=== PATIENT | female | born 2000 | race African-American/Black ===

== ENCOUNTER 2022-06-10 13:55 | Emergency (ER) | payer OTHER, SELFPAY ==
[2022-06-10 14:15] VITALS: BP 143/78; PULSE 76; RESP 18; TEMP 36.7; O2SAT 100
[2022-06-10 17:05] LABS: Beta HCG Quantitative 61.48 mIU/ML
--- NOTE | 2022-06-10 17:26 | ED.PREGNANCY ---
HPI - General Chief complaint: Urogenital-Female Stated complaint: needs preg test Time Seen by Provider: 06/10/22 15:39 History of Present Illness HPI Narrative: 20-year-old female presents to the emergency room requesting blood work to confirm her positive urine test. Reports her last menstrual period was May 03. Patient states that she had 2 positive home tests recently and needs proof that she is to excuse her from drills. Denies any abdominal pain low back pain or vaginal bleeding. Does admit to nausea vomiting and some diarrhea recently Related Data Allergies Allergy/AdvReac Type Severity Reaction Status Date / Time No Known Allergies Allergy Verified 06/10/22 13:56 Review of Systems Review of Systems: CONSTITUTIONAL: Denies fever, chills, or sweats. EYES: Denies visual changes, redness, or discharge. ENT: Denies rhinorrhea, congestion, sore throat, or otalgia. CARDIOVASCULAR: Denies chest pain, palpitations, or edema. RESPIRATORY: Denies cough or dyspnea. GASTROINTESTINAL: Denies abdominal pain, nausea, vomiting, or diarrhea. GENITOURINARY: Denies dysuria or hematuria. SKIN: Denies rash or itching. MUSCULOSKELETAL: Denies back pain, joint pain, or myalgia. NEUROLOGIC: Denies headache, numbness, dizziness, or weakness. PSYCHIATRIC: Denies anxiety or depression. Exam Narrative: GENERAL: Well-appearing, well-nourished, no physical limitations, and in no acute distress. HEAD: Normocephalic, atraumatic. EYES: Conjunctivae normal, PERRLA and EOMI. CHEST: Clear to auscultation. No respiratory distress. No wheezes rales or rhonchi. HEART: Regular rate and rhythm. No murmur heard. Normal peripheral pulses. ABDOMEN: Soft, nontender, nondistended, normal active bowel sounds. EXTREMITIES: Normal range of motion. No edema. No clubbing or cyanosis SKIN: Warm, dry, no rash. No noted wounds NEURO: No focal deficits. Alert and oriented x3. MAEW. CN's II-XI intact bilaterally, normal gait PSYCH: Cooperative. Normal mood and affect. Course Vital Signs Vital signs: Vital Signs Temperature 36.7 C 06/10/22 14:15 Pulse Rate 76 06/10/22 14:15 Respiratory Rate 18 06/10/22 14:15 Blood Pressure 143/78 H 06/10/22 14:15 Pulse Oximetry 100 06/10/22 14:15 Oxygen Delivery Room Air 06/10/22 14:15 Temperature 36.7 C 06/10/22 14:15 Pulse Rate 76 06/10/22 14:15 Respiratory Rate 18 06/10/22 14:15 Blood Pressure 143/78 H 06/10/22 14:15 Pulse Oximetry 100 06/10/22 14:15 Oxygen Delivery Room Air 06/10/22 14:15 MDM - OB/Uterine Contractions Lab Data Labs: Lab Results 06/10/22 Range/Units 16:31 Beta HCG, Quant 61.48 mIU/ML UCG Bedside Result Negative Reference Range: Negative Discharge Plan Discharge Clinical Impression: Patient Disposition: Home, Self-Care Condition: Stable Instructions: Antibiotic Form, (ED) Additional Instructions: Your beta hCG level is 61.5. The gestational age of your fetus is less than 4 weeks. I strongly recommend you follow up with an OBGYN in 2-4 weeks for another blood draw to make sure your hCG levels are rising. Also recommend starting on vitamins ALLIE. Follow-up/Referrals: PHYSICIAN,MANGLE ROLLER [Primary Care Provider] - Time of Disposition: 17:26
[2022-06-10 17:48] VITALS: BP 122/76; PULSE 80; RESP 16; O2SAT 98
== END 2022-06-10 17:49 | disposition home or self-care (01) ==
PROVIDERS: Emergency Provider Nurse Practitioner Family
DX: Z32.01 Encounter for pregnancy test, result positive (principal)
CPT/HCPCS: 36415; 81025; 84702; 99283

== ENCOUNTER 2022-06-13 16:49 | Outpatient (CLI) | payer OTHER, SELFPAY ==
[2022-06-13 18:09] LABS: Beta HCG Quantitative 316.95 mIU/ML
== END 2022-06-13 16:50 | disposition home or self-care (01) ==
LOC: ANHLAB 16:52
PROVIDERS: Visit Provider Obstetrics & Gynecology
DX: O20.0 Threatened abortion (principal); Z3A.00 Weeks of gestation of pregnancy not specified
CPT/HCPCS: 36415; 84702

== ENCOUNTER 2022-06-15 16:22 | Outpatient (CLI) | payer OTHER, SELFPAY | END 2022-06-15 16:23 | disposition home or self-care (01) | LOC: ANHLAB 16:24 | PROVIDERS: Visit Provider Obstetrics & Gynecology | DX: O20.0 Threatened abortion (principal); Z3A.00 Weeks of gestation of pregnancy not specified | CPT/HCPCS: 36415; 84702 ==

== ENCOUNTER 2022-07-15 11:52 | Outpatient (RCR) | payer OTHER, SELFPAY | END 2022-10-11 23:59 | disposition home or self-care (01) | LOC: ANHLAB 11:52 | PROVIDERS: Visit Provider Obstetrics & Gynecology | DX: O20.0 Threatened abortion (principal); Z3A.00 Weeks of gestation of pregnancy not specified | CPT/HCPCS: 36415; 84702 ==

== ENCOUNTER 2022-07-21 02:00 | Day surgery (SDC) | payer OTHER, SELFPAY ==
[2022-07-20 09:22] VITALS: BMI 27.6
--- NOTE | 2022-07-20 09:26 | PC.NURSE ---
Report to the Outpatient Waiting Room, entrance under the green pavilion located off [facility], at time 1200 on date 07/21/22. Planned Procedure Time: 1400. Time changes happen often and if your time is changed the preop area will call you the afternoon before. - You and your visitor will be asked to self-screen and do not enter if you have any COVID symptoms. - Only one visitor is requested with a max of two and NO children visitors are allowed at this time. - The patient visitor may be requested to leave or wait in car when not with patient due to distancing restrictions. - A mask is optional within the hospital. Patients may have clear liquids (water, carbonated beverages, clear teas, apple juice) until 3 hours prior to surgery with a maximum of 20 ounces. - No food from midnight until time of surgery Take the following medications with a SIP of water the morning of surgery: N/A Medications to discontinue per physician: N/A Date to take last dose: N/A Please no make-up, nail macedonian, hairspray, perfume, deodorant, or body powder the day of surgery. No jewelry (including any body piercings) or valuables the day of surgery, leave them at home. Please take a shower or bath the night before, or the morning of, surgery with an antibacterial soap. Wear comfortable, loose fitting clothing. - Jewelry must be removed prior to entering the operating room. Rings and piercings that are not removed may be cut off. - The hospital will not accept responsibility for valuables. - Please leave all valuables, including medications, at home the day of surgery. If you are going home after surgery, a licensed wrecker driver must drive you home. - NO public transportation without another adult if you receive anesthesia. - We recommend that an adult stay with you for 24 hours following discharge. - We also recommend that you do not drive, make important decision, drink alcoholic beverages, or take any drugs that were not prescribed by your health care provider for at least 24 hours after your discharge time. Follow any additional instructions given to you from your surgeon. If you or anyone in your household have experienced Covid symptoms in the past week, please notify your surgeon or the nurse liaison at the phone number below for possible testing. Telephone instructions given to PT - JUAN DAMON and asked if any additional questions and then verbalized understanding. Patient advised to call surgeon office or pre surgery nurse liaison [phone] if any additional questions.
--- NOTE | 2022-07-21 12:34 | WPDANESEPPF ---
Anes - Initial Pre Proc Eval Procedure: Operation Date: 07/21/22 14:00 Proposed Procedures p Suction Dilation and Curettage - Des Robert MD Date/Time: 07/21/22 12:34 Surgeon: Des Robert MD Pre Op Diagnosis: Missed AB Patient Data Age: 21 Gender: F Height: 1.6 m Weight: 70.76 kg Allergies Allergy/AdvReac Type Severity Reaction Status Date / Time No Known Allergies Allergy Verified 07/21/22 12:18 Home Medications Medication Instructions Recorded Confirmed Type No Home Medications 07/20/22 07/21/22 History Patient hx anesthesia problems: none Family hx anesthesia problems: none Results Review: All pre-operative results and documents have been reviewed as part of the pre-operative evaluation. [facility] Social History Social History Smoking status: Never smoker Alcohol intake: never Substance use: never Substance use type: does not use Living arrangements: dorm student housing Spiritual care concerns: No Anes - Eval Final PreProcedure Day of Procedure 07/21/22 12:34 Patient weight: normal Heart: regular rate and rhythm Lungs: clear to auscultation Airway: Mallampati scale class 1 Neurological: alert and oriented Last oral intake: >/= 8 hours ASA classification: II Emergent: no Anesthetic plan: proceed Anesthesia type and monitoring: general GIVS and standard monitoring Results Review: All pre-operative results and documents have been reviewed as part of the pre-operative evaluation. Informed Consent: The patient's anesthetic plan and its attendant risks and benefits were discussed with the patient/family/POA. Questions were solicited and answers provided to the satisfaction of the patient/family/POA.
--- NOTE | 2022-07-21 12:38 | WPDHPUPDATE1 ---
History and Physical Update Update Date/Time: 07/21/22 12:38 History and Physical has been reviewed, including an updated exam of the patient. There are NO changes in the patient's condition. Risks, benefits, and alternatives have been discussed and questions answered. Patient agrees to proceed with procedure.
[2022-07-21] MEDS: LACTATED RINGERS 1,000 ML 30 ML IV CONT (12:51)
[2022-07-21] MEDS: ACETAMINOPHEN 500 MG TABLET 1000 MG PO (12:52)
[2022-07-21 13:04] VITALS: BP 121/65; PULSE 68; RESP 16; TEMP 36.7; O2SAT 100
[2022-07-21 13:55] VITALS: BP 112/67; PULSE 63; RESP 14; O2SAT 100
[2022-07-21] MEDS: LIDOCAINE HCL 1% PF INJ 5 ML VIAL 10 ML INFILTRATE (13:55)
--- NOTE | 2022-07-21 13:55 | W.PM.PROC2 ---
Procedure Note - Detailed Date of Procedure 07/21/22 Pre-op Diagnosis Missed AB Post-op Diagnosis Same Procedure Performed Suction D&C Surgeon Des Robert MD Anesthesia MAC Indications missed Findings normal-appearing vulva vagina and cervix to. Moderate amount of products conception within the uterus. 8 cm uterus Description of Procedure the patient was taken the operating room. She was prepped and draped in dorsal lithotomy position after induction of mac anesthesia. A speculum was placed in the vagina. Cervix grasped with tenaculum. The cervix was dilated to about 1 cm Using Flowers dilators. A 8. Japanese curved curette was used to perform suction D&C. The curette was introduced and vacuum was applied. The curette was removed over all surfaces of the intrauterine cavity multiple times. This was done until all the surfaces were clear and had the familiar grainy texture they can be felt through the instrument. A sharp curette was then used to curettage all the surfaces. The suction cup was then reapplied 1 more time to remove any debris. The instruments were removed. The speculum and tenaculum were removed. The patient tolerated the procedure well. She was taken recovery room stable condition. Estimated Blood Loss 50 Drains No Packing No Pathology Yes Complications No immediate complications Condition Stable Disposition PACU
[2022-07-21 14:20] VITALS: BP 112/67; PULSE 63; RESP 16
[2022-07-21] MEDS: fentaNYL CITRATE INJ (*CRX) 100 MCG/2 ML VIAL 25 MCG IV PUSH ×2 (14:21→14:24)
[2022-07-21 14:50] VITALS: BP 115/64; PULSE 52; RESP 14
[2022-07-21] MEDS: oxyCODONE HCL (*CRX) 5 MG TAB IR PO (15:01)
[2022-07-21 15:20] VITALS: BP 110/58; PULSE 57; RESP 14
== END 2022-07-21 15:45 | disposition home or self-care (01) ==
PROVIDERS: Visit Provider Obstetrics & Gynecology
PROC: (CPT 59820; principal; 2022-07-21 14:00)
DX: O02.1 Missed abortion (principal); Z3A.00 Weeks of gestation of pregnancy not specified
CPT/HCPCS: 59820; 36415; 85461; 86850; 86900; 86901; 88305; A9270; J2250; J2704; J3010; J7120

== ENCOUNTER 2024-03-31 20:34 | Emergency (ER) | payer OTHER, SELFPAY ==
--- NOTE | ~2024-03-31 | CT_ITS ---
CT of the Abdomen and Pelvis: Indication: Nausea, vomiting, diarrhea Technique: 2.5 mm axial scans were obtained through the abdomen and pelvis following intravenous adm inistration of 100 cc of Omnipaque 350. Dose reduction technique was used on this scan by utilizing a utomated exposure control and iterative reconstruction technique. The dose-length product (DLP) was 4 62.42 mGy-cm. Findings: Scans through the lung bases are unremarkable. The liver, spleen, pancreas, gallbladder, adrenals and kidneys are within normal limits. No evidence of aortic aneurysm. No lymphadenopathy. No bowel obstruction or bowel wall thickening. There is no evidence to suggest acute appendicitis. Images through the pelvis were performed. Urinary bladder unremarkable. Small right ovarian cyst pres ent. Small amount of pelvic free fluid present. Impression: Small amount of pelvic free fluid and probable small right ovarian cyst. Consider prior cyst rupture. No other significant findings. Reviewed, dictated and finalized at [facility]. Impression: Small amount of pelvic free fluid and probable small right ovarian cyst. Consid er prior cyst rupture. No other significant findings.
[2024-03-31 20:38] VITALS: BP 130/71; PULSE 91; RESP 14; TEMP 36.8; O2SAT 99
[2024-03-31 21:06] LABS: Basophils Percent Auto 0.3 % (0.2-1.2); Hemoglobin 12.6 g/dL (12.0-15.0); Immature Granulocyte Absolute 0.05 K/mm3 (0.00-0.031); Immature Granulocyte Percent A 0.4 % (0-0.5); Immature Platelet Fraction Pct 13.5 % (0.9-11.2); Lymphocytes Absolute Auto 0.46 K/mm3 (0.9-3.2); Lymphocytes Percent Auto 3.8 % (18.3-44.2); Mean Corpuscular HGB Conc 31.5 g/dl (32-36); Mean Corpuscular Hemoglobin 22.9 pg (26-34); Mean Corpuscular Volume 72.6 fl (80-100); Mean Platelet Volume 13.7 fl (7.4-10.4); Monocytes Absolute Auto 0.4 K/mm3 (0.1-0.6); Monocytes Percent Auto 3.4 % (2.6-8.5); Neutrophils Absolute Auto 11.3 K/mm3 (1.3-6.7); Neutrophils Percent Auto 92.1 % (45.5-73.1); Platelet Count Result 161 k/mm3 (150-375); Red Blood Count 5.51 M/mm3 (4.2-5.4); Red Cell Distribution Width 14.6 % (11.5-14.5); White Blood Count 12.2 K/mm3 (4.5-10.0)
[2024-03-31 21:15] LABS: Alanine Aminotransferase 13 U/L (6-35); Albumin Level 4.7 g/dL (3.5-5.1); Alkaline Phosphatase 111 U/L (38-126); Anion Gap 20 mmol/L (4-12); Aspartate Amino Transferase 24 U/L (14-36); Bilirubin,Total 0.4 mg/dL (0.2-1.3); Blood Urea Nitrogen 11 mg/dL (7-17); Calcium 9.2 mg/dL (8.4-10.2); Carbon Dioxide 11 mmol/L (22-30); Chloride 107 mmol/L (98-107); Estimated CRCL calculation 95 ml/min; Estimated Glomerular Filt Rate > 60; Glucose 151 mg/dL (65-110); Lipase 44 U/L (23-300); Potassium 4.2 mmol/L (3.4-5.0); Sodium 138 mmol/L (137-145)
[2024-03-31 21:31] LABS: Anisocytosis 1+; Large Platelets Present; Microcytosis 1+ (NORMAL); Platelet Estimate Adequate (Adequate); Schistocytes None Seen
[2024-04-01] MEDS: DEXTROSE 5%/LACTATED RINGERS 1,000 ML 1000 ML IV CONT (01:18)
[2024-04-01] MEDS: ONDANSETRON INJ 4 MG/2 ML VIAL IV PUSH (01:18)
[2024-04-01 01:23] VITALS: BP 123/72; PULSE 70; RESP 14; TEMP 37.4; O2SAT 100
[2024-04-01 01:25] LABS: Lactic Acid Reflex 1.5 mmol/L (0.7-2.0)
[2024-04-01] MEDS: MORPHINE SULFATE (*CRX) 4 MG/ML INJ IV PUSH (01:27)
[2024-04-01 01:31] LABS: Beta-Hydroxybutyrate/Acetoacetate 1.34 mmol/L (0.02-0.27)
[2024-04-01 01:44] LABS: Beta HCG Quantitative < 2.39 mIU/ML
[2024-04-01 01:53] LABS: Add Urine Microscopic? YES; Appearance Urine Cloudy (Clear); Bacteria Urine 2+ /hpf; Bilirubin Urine Negative (Negative); Blood Urine Negative (Negative); Color Urine Yellow (Yellow); Glucose Urine UA Negative (Negative); Ketones Urine 4+ mg/dL (Negative); Leukocyte Esterase Ur Negative LEU/UL (Negative); Need Manual Microscopic Reviewed; Nitrate Urine Negative (Negative); Non Pathogenic Casts 0-2; Protein Urine Trace mg/dL (Negative); RBC Urine 0-2 /hpf (0-2); Specific Grav Ur 1.028 (1.001-1.035); Squamous Epithelial Cell Urine Many /hpf (Few); Urobilinogen Urine 0.2 mg/dL (<2.0); pH Urine 5.5 (5.0-9.0)
--- NOTE | 2024-04-01 02:26 | ED.NAVMDI ---
HPI - Nausea/Vomiting/Diarrhea General Chief complaint: Nausea/Vomiting/Diarrhea Stated complaint: nausea, vomiting, diarrhea Time Seen by Provider: 04/01/24 00:32 History of Present Illness HPI Narrative: 23-year-old female history of H pylori infection presenting to the emergency room with a chief complaint of nausea, vomiting, diarrhea. She states that she was previously treated for H pylori under endoscopy by her GI doctor. Was told that she still had H pylori during her recent visit with confirmatory testing. She states this feels dissimilar. She states she was eating chicken that she thinks might of been gone spoiled in her kitchen and several hours later started developing nauseousness, vomiting and loose watery stools. She states that she has been having multiple episodes of both vomiting and diarrhea since this happened started having some abdominal cramping in the epigastrium. Denies any fever, chills, headache, chest pain, shortness a breath, pelvic pain, back pain, GI or symptoms otherwise. Related Data Allergies Allergy/AdvReac Type Severity Reaction Status Date / Time No Known Allergies Allergy Verified 07/21/22 12:18 Review of Systems Review of Systems: As reviewed above in HPI [facility] Social History Social History Smoking status: Never smoker Alcohol intake: never Substance use: never Substance use type: does not use Living arrangements: dorm student housing Gender identity (if verbalized by the patient): Female Sexual Orientation (if Verbalized by the Patient): Straight or Heterosexual Spiritual care concerns: No Exam Narrative: GENERAL: [Well-appearing, well-nourished, and in no acute distress.] HEAD: [Normocephalic, atraumatic.] EYES: [PERRLA and EOMI.] ENT: Nares clear, no rhinorrhea or epistaxis. Mucous membranes moist. NECK: Supple. CHEST: [Clear to auscultation. No respiratory distress.] HEART: [Regular rate and rhythm]. No murmur heard. [Normal peripheral pulses.] ABDOMEN: [Soft, nondistended], [nontender], [No rigidity or guarding] EXTREMITIES: Normal range of motion. [No edema.] SKIN: Warm, dry, no rash. NEURO: [No focal deficits]. Alert and oriented [x3.] PSYCH: [Normal mood and affect.] Course Vital Signs Vital signs: Vital Signs Temperature 36.8 C 03/31/24 20:38 Pulse Rate 91 03/31/24 20:38 Respiratory Rate 14 03/31/24 20:38 Blood Pressure 130/71 03/31/24 20:38 Pulse Oximetry 99 03/31/24 20:38 Oxygen Delivery Room Air 03/31/24 20:38 Temperature 37.4 C 04/01/24 01:23 Pulse Rate 70 04/01/24 01:23 Respiratory Rate 14 04/01/24 01:23 Blood Pressure 123/72 04/01/24 01:23 Pulse Oximetry 100 04/01/24 01:23 Oxygen Delivery Room Air 03/31/24 20:38 MDM - Nausea/Vomiting/Diarrhea MDM Narrative Medical decision making narrative: 23-year-old female with history of H pylori presenting to the emergency room with nausea, vomiting, diarrhea that started onset several hours after eating chicken that she thinks might have been spilled. She has reassuring vital signs and a reassuring examination with a soft nontender nondistended abdomen. No tachycardia, blood pressure concerns, fever or hypoxia. Differential diagnosis includes bacterial gastroenteritis, viral gastroenteritis, food poisoning, less likely related to her H pylori or other intra-abdominal process such as appendicitis, cholecystitis, colitis. Will obtain laboratory studies including a CBC, CMP, lipase, lactic acid, beta hydroxybutyrate and beta hCG level. Urinalysis was obtained. CT scan with IV contrast was ordered and she was treated with morphine, Zofran and given D5 LR boluses she was hypoglycemic for EMS requiring D10 infusion likely secondary to the volume depletion from vomiting diarrhea. Initial labs show a minor a white count of 12.2, no anemia. Electrolytes show an anion gap of 20, bicarb 11
[2024-04-01] MEDS: LACTATED RINGERS 1,000 ML 999 ML IV CONT (03:30)
[2024-04-01 04:33] LABS: Beta-Hydroxybutyrate/Acetoacetate 0.12 mmol/L (0.02-0.27)
[2024-04-01 04:42] LABS: Anion Gap 11 mmol/L (4-12); Blood Urea Nitrogen 9 mg/dL (7-17); Calcium 8.7 mg/dL (8.4-10.2); Carbon Dioxide 20 mmol/L (22-30); Chloride 104 mmol/L (98-107); Estimated CRCL calculation 123 ml/min; Estimated Glomerular Filt Rate > 60; Glucose 201 mg/dL (65-110); Potassium 3.9 mmol/L (3.4-5.0); Sodium 135 mmol/L (137-145)
[2024-04-01 05:00] VITALS: BP 131/68; PULSE 64; RESP 14; O2SAT 100
[2024-04-01] MEDS: CEPHALEXIN 500 MG CAPSULE PO (05:07)
[2024-04-01 14:30] LABS: BEDSIDEPREGUCG Negative (Negative)
== END 2024-04-01 05:20 | disposition home or self-care (01) ==
PROVIDERS: Emergency Provider Student in an Organized Health Care Education/Training Program
DX: K52.9 Noninfective gastroenteritis and colitis, unspecified (principal); N39.0 Urinary tract infection, site not specified; E88.89 Other specified metabolic disorders
CPT/HCPCS: 36415; 74177; 80048; 80053; 81001; 81025; 82010; 83605; 83690; 84702; 85025; 85055; 87086; 87088; 96361; 96374; 96375; 99284; A9270; J2270; J2405; J7120; J7121; Q9967